=== PATIENT | female | born 1970 | race Caucasian/White ===

== ENCOUNTER 2020-11-17 10:14 | Emergency (ER) | payer MEDICAID ==
[~2020-11-17] VITALS: Ht 170.2 cm; Wt 80.0 kg
[2020-11-17 10:27] VITALS: BP 115/86
[2020-11-17] MEDS ORDERED: HYDROcodone/APAP 5/325MG 1 TAB TABLET PO ONE (10:45)
--- NOTE | 2020-11-17 11:10 | RAD ---
EXAM: Left knee, 4 views. HISTORY: Fall, pain. COMPARISON: None. FINDINGS: No fractures are identified. Joint spaces and alignment are maintained. There is no joint e ffusion. IMPRESSION: 1. No fracture or joint effusion. Electronically signed by: Lisa Modi MD (11/17/2020 11:08 AM) [id number]
--- NOTE | 2020-11-17 11:16 | RAD ---
EXAM: Right ankle 3 views. HISTORY: Fall, pain. COMPARISON: None. FINDINGS: Three views of the right ankle are obtained. A nondisplaced osteochondral lesion measuring 7 mm is suspected along the lateral talar dome. No disp laced fractures are appreciated elsewhere. There is soft tissue swelling laterally greater than media lly Alignment is normal. Joint spaces are maintained. IMPRESSION: 1. Suspect a nondisplaced osteochondral lesion along the lateral talar dome versus artifact. MRI coul d further evaluate. 2. Soft tissue injury laterally greater than medially. Electronically signed by: Lisa Modi MD (11/17/2020 11:13 AM) [id number]
--- NOTE | 2020-11-17 11:21 | PHYS DOC ---
Past History Past Surgical History: Hysterectomy Alcohol Use: None General Adult EDM: Chief Complaint: MECHANICAL FALL HPI: HPI: Patient is a 44-year-old female coming in for left knee pain and right ankle pain. Patient states she was going to take her dog out to use the restroom and missed the last step. Is unsure how she twisted her knee or how the injuries occurred. Denies any head injury or loss of consciousness. Patient states that she has been wearing a cam boot on her right for chronic right ankle pain that was thought to be tendinitis. Patient states she was not wearing the boot at the time. Review of Systems: Review of Systems: All other systems within normal limits except for as noted in the HPI Current Medications: Current Meds: Current Medications Medications (Trade) Dose Ordered Sig/Prateek Start Time Stop Time Status Last Admin Dose Admin Acetaminophen/ Hydrocodone Bitart (Lortab 5/325) 1 tab 1X ONCE 11/17/20 10:45 11/17/20 10:46 DC 11/17/20 10:44 1 TAB Allergies: Allergies: Allergies Coded Allergies Type Severity Reaction Last Updated Verified bee venom protein (honey bee) Allergy Unknown 11/17/20 Yes Physical Exam: PE: Constitutional: Well developed, well nourished, no acute distress, non-toxic appearance. [] HENT: Normocephalic, atraumatic, bilateral external ears normal, nose normal. [] Eyes: PERRLA, conjunctiva normal, no discharge. [] Neck: No rigidity, supple, no stridor. [] Cardiovascular: Regular rate and rhythm, brisk cap refill [] Lungs & Thorax: Non labored symmetric respirations, no tachypnea or respiratory distress [] Abdomen: Soft, nondistended. Skin: Warm, dry, no erythema, no rash. [] Back: Unremarkable Extremities: No deformities, range of motion grossly intact, no lower extremity edema. Left knee exam: No swelling or deformity, tenderness beneath patella. No anterior, posterior, varus, valgus laxity. Pain not reproduced with axial loading. Right ankle exam: Tenderness and swelling over lateral malleolus, no other tenderness or swelling. [] Neurologic: Alert and oriented X 3, no focal deficits noted. [] Psychologic: Affect normal, judgement normal, mood normal. [] Current Patient Data: Vital Signs: Vital Signs Date Time Temp Pulse Resp B/P (MAP) Pulse Ox O2 Delivery O2 Flow Rate FiO2 11/17/20 10:44 16 11/17/20 10:27 98.5 90 115/86 98 Room Air EKG: EKG: [] Radiology/Procedures: Radiology/Procedures: [address] [address] IMAGING REPORT Signed PATIENT: FRANK OVALLE ACCOUNT: [id number] : 1970 LOCATION: ER AGE: 49 SEX: F EXAM STATUS: REG ER ORD. PHYSICIAN: NNAMDI JACOBO MD REASON: fall PROCEDURE: KNEE LEFT 4V EXAM: Left knee, 4 views. HISTORY: Fall, pain. COMPARISON: None. FINDINGS: No fractures are identified. Joint spaces and alignment are maintained. There is no joint effusion. IMPRESSION: 1. No fracture or joint effusion. Electronically signed by: Lisa Modi MD (11/17/2020 11:08 AM) [id number] DICTATED AND SIGNED BY: RALPH MODI MD DATE: 11/17/20 1109 CC: NNAMDI JACOBO MD; PCP,UNKNOWN ~MTH0 0 [][address] [address] IMAGING REPORT Signed PATIENT: FRANK OVALLE ACCOUNT: [id number] : 1970 LOCATION: ER AGE: 49 SEX: F EXAM STATUS: REG ER ORD. PHYSICIAN: NNAMDI JACOBO MD REASON: fall PROCEDURE: ANKLE RIGHT 3V EXAM: Right ankle 3 views. HISTORY: Fall, pain. COMPARISON: None. FINDINGS: Three views of the right ankle are obtained. A nondisplaced osteochondral lesion measuring 7 mm is suspected along the lateral talar dome. No displaced fractures are appreciated elsewhere. There is soft tissue swelling laterally greater than medially Alignment is normal. Joint spaces are maintained. IMPRESSION: 1. Suspect a nondisplaced osteochondral lesion along the lateral talar dome versus artifact. MRI could further evaluate. 2. Soft tissue injury laterally greater than medially. Electronically signed by: Lisa Modi MD (11/17/2020 11:13 AM) [id number] DICTATED AND SIGNED BY: RALPH MODI MD DATE: 11/17/20 1108 CC: NNAMDI JACOBO MD; PCP,UNKNOWN ~MTH0 0 Heart Score: C/O Chest Pain: No Risk Factors: Risk Factors: DM, Current or recent (<one month) smoker, HTN, HLP, family history of CAD, obesity. Risk Scores: Score 0 - 3: 2.5% MACE over next 6 weeks - Discharge Home Score 4 - 6: 20.3% MACE over next 6 weeks - Admit for Clinical Observation Score 7 - 10: 72.7% MACE over next 6 weeks - Early Invasive Strategies Course & Med Decision Making: Course & Med Decision Making Discussed with Dr. Shook, patient can use her cam boot and follow-up in clinic. Dragon Disclaimer: Dragon Disclaimer: This electronic medical record was generated, in whole or in part, using a voice recognition dictation system. Departure Departure: Impression: Primary Impression: Fractured lateral malleolus Disposition: HOME / SELF CARE / HOMELESS Condition: STABLE Referrals: PCP,UNKNOWN (PCP) BILL SHOOK MD Patient Instructions: Elastic Bandage and RICE Additional Instructions: Follow-up with your primary care provider for referral to [facility] for antibody titer testing for COVID-19 Scripts Hydrocodone Bit/Acetaminophen (HYDROCODONE-APAP 5-325 ) 1 Each Tablet 1 TAB PO PRN Q6HRS PRN for PAIN for 3 Days, #10 TAB 0 Refills Caution: this medication can make you drowsy. Do not drive or operate heavy machinery when using this medication. Prov: NNAMDI JACOBO MD 11/17/20 NNAMDI JACOBO MD Nov 17, 2020 11:21
[2020-11-17] MEDS ORDERED: ONDANSETRON ODT 4 MG TAB.RAPDIS PO ONE (11:45)
[2020-11-17] MEDS ORDERED: HYDR-2155 PO (11:59)
== END 2020-11-17 12:19 | disposition home or self-care (01) ==
LOC: ER 10:14
DX: S82.61XA Displaced fracture of lateral malleolus of right fibula, initial encounter for closed fracture (principal); M25.562 Pain in left knee; Z91.030 Bee allergy status; X50.9XXA Other and unspecified overexertion or strenuous movements or postures, initial encounter; Y93.89 Activity, other specified; Y92.89 Other specified places as the place of occurrence of the external cause; Y99.8 Other external cause status
CPT/HCPCS: 73564; 73610; 99284; Q0162

== ENCOUNTER 2021-06-05 13:16 | Emergency (ER) | payer MEDICAID ==
[~2021-06-05] VITALS: Ht 170.2 cm; Wt 94.0 kg
[~2021-06-05 13:16] MED LIST: HYDR-2155 PO
[2021-06-05 13:33] VITALS: BP 132/92
[2021-06-05] MEDS ORDERED: PROMETHAZINE 25 MG TABLET. PO ONE (13:45)
[2021-06-05] MEDS ORDERED: SUMAtriptan SUCC 6 MG/0.5 ML VIAL SQ ONE (13:45)
[2021-06-05] MEDS ORDERED: KETOROLAC 60 MG/2 ML VIAL. IM ONE (13:45)
[2021-06-05] MEDS ORDERED: diphenhydrAMINE 50 MG/ML VIAL IM ONE (14:30)
--- NOTE | 2021-06-05 14:42 | PHYS DOC ---
Past History Additional Past Medical Histor: lupus Past Surgical History: Hysterectomy Alcohol Use: None General Adult EDM: Chief Complaint: HEADACHE HPI: HPI: Patient is a 50 year old female with past medical history of migraines who presents with headache that she has had for the past 4 days. She denies any inciting factors, stating that she "just woke up with it." She rates her pain 5/10 nonradiating. She does not have auras with her migraines. Patient denies photophobia, phonophobia. She reports associated nausea. Patient states that she has lived away from the area for several years, and just moved back recently. Typically, she is given Toradol and Phenergan for her migraines, as well as one other medication, of which she cannot remember the name. Review of Systems: Review of Systems: ROS negative or noncontributory except as mentioned in HPI. Current Medications: Current Meds: Current Medications Medications (Trade) Dose Ordered Sig/Prateek Start Time Stop Time Status Last Admin Dose Admin Diphenhydramine HCl (Benadryl) 50 mg 1X ONCE 06/05/21 14:30 06/05/21 14:31 DC Ketorolac Tromethamine (Toradol Im) 60 mg 1X ONCE 06/05/21 13:45 06/05/21 13:49 DC 06/05/21 13:57 60 MG Promethazine HCl (Phenergan) 25 mg 1X ONCE 06/05/21 13:45 06/05/21 13:49 DC 06/05/21 13:57 25 MG Sumatriptan Succinate (Imitrex) 6 mg 1X ONCE 06/05/21 13:45 06/05/21 13:49 DC 06/05/21 13:58 6 MG Allergies: Allergies: Allergies Coded Allergies Type Severity Reaction Last Updated Verified amoxicillin Allergy Intermediate rash 06/05/21 Yes bee venom protein (honey bee) Allergy Unknown 11/17/20 Yes Physical Exam: PE: Constitutional: Well developed, well nourished, no acute distress, non-toxic appearance. HENT: Normocephalic, atraumatic, bilateral external ears normal, nose normal. Eyes: EOMI, conjunctiva normal, no discharge. Neck: Normal range of motion, no tenderness, no stridor. Skin: Warm, dry, no erythema, no rash. Back: No tenderness, no CVA tenderness. Extremities: No tenderness, no cyanosis, no clubbing, ROM intact, no edema. Neurologic: Alert and oriented x4, steady and symmetrical upright gait, no focal deficits noted. Current Patient Data: Vital Signs: Vital Signs Date Time Temp Pulse Resp B/P (MAP) Pulse Ox O2 Delivery O2 Flow Rate FiO2 06/05/21 13:33 82 16 132/92 (105) 99 Room Air Heart Score: C/O Chest Pain: No Course & Med Decision Making: Course & Med Decision Making Pertinent Labs and Imaging studies reviewed. (See chart for details) Patient is a 50-year-old female with history of migraine who presents today with a headache with onset 4 days ago. She states she has tried taking prednisone and Benadryl at home without symptom relief. Patient states she usually gets Toradol and Phenergan injection for her migraines, but she believes that her pain is too intense for these medications. With triptans, patient states that she gets "irritated." Discussed medication options with the patient. Using shared decision making model, will provide IM Toradol, subcu Imitrex and p.o. Phenergan. After Imitrex administration, patient did become irritable, and began scratching at herself. I ordered IM Benadryl for the patient. Before nurse was able to provide Benadryl to aid in agitation and urticaria, patient had eloped the emergency department. No discharge instructions nor return precautions were able to be provided. Stiven Disclaimer: Stiven Disclaimer: This electronic medical record was generated, in whole or in part, using a voice recognition dictation system. Departure Departure: Impression: Primary Impression: Eloped from emergency department Additional Impression: Headache, unspecified Qualified Codes: R51.9 - Headache, unspecified Disposition: 07 LEFT AWOL/ELOPED Condition: GUARDED Referrals: PCP,UNKNOWN (PCP) KALI ELY Jun 05, 2021 14:41
== END 2021-06-05 14:45 | disposition left against medical advice (07) ==
LOC: ER 13:16
DX: G43.909 Migraine, unspecified, not intractable, without status migrainosus (principal); Z88.1 Allergy status to other antibiotic agents; Z91.030 Bee allergy status
CPT/HCPCS: 96372; 99284; J1885; J3030; Q0169

== ENCOUNTER 2021-07-25 13:45 | Emergency (ER) | payer MEDICAID ==
[~2021-07-25] VITALS: Ht 170.2 cm; Wt 91.9 kg
--- NOTE | 2021-07-25 14:10 | PHYS DOC ---
Past History Additional Past Medical Histor: lupus Past Surgical History: Hysterectomy Alcohol Use: None General Adult EDM: Chief Complaint: HEADACHE HPI: HPI: Patient is a 50-year-old female who presents to the emergency department for headache. Patient reports a generalized headache that she rates 6 out of 10. She reports that typically caffeine helps. Headache has been intermittent over the last 3 days. Patient states that she has a history of migraine headaches and was seen in this emergency department 2 weeks ago for similar headache. She reports nausea and phonophobia. She denies thunderclap headache, vomiting, photophobia, fevers. She reports that this is not the worst headache she has ever had. Patient does have a history of seizures and takes Topamax, gabapentin and Depakote. She reports having a history of a stable pituitary adenoma. Review of Systems: Review of Systems: Constitutional: See HPI Eyes: See HPI HEENT: See HPI GI: See HPI Neurologic: See HPI Current Medications: Current Meds: Current Medications Medications (Trade) Dose Ordered Sig/Prateek Start Time Stop Time Status Last Admin Dose Admin Diphenhydramine HCl (Benadryl) 25 mg 1X ONCE 07/25/21 14:15 07/25/21 14:16 UNV Ketorolac Tromethamine (Toradol 30mg Vial) 30 mg 1X ONCE 07/25/21 14:15 07/25/21 14:16 UNV Prochlorperazine Edisylate (Compazine) 10 mg 1X ONCE 07/25/21 14:15 07/25/21 14:16 UNV Sodium Chloride 1,000 ml @ 1,000 mls/hr 1X ONCE 07/25/21 14:15 07/25/21 15:14 UNV Allergies: Allergies: Allergies Coded Allergies Type Severity Reaction Last Updated Verified amoxicillin Allergy Intermediate rash 06/05/21 Yes bee venom protein (honey bee) Allergy Unknown 11/17/20 Yes Physical Exam: PE: Constitutional: Well developed, well nourished, no acute distress, non-toxic appearance. [] HENT: Normocephalic, atraumatic, bilateral external ears normal, oropharynx moist, no oral exudates, nose normal. [] Eyes: PERRL 5 mm bilaterally,, no nystagmus, EOMI, conjunctiva normal, no discharge. [] Neck: Normal range of motion, no nuchal rigidity, no tenderness, supple, no stridor. [] Cardiovascular:Heart rate regular rhythm, no murmur [] Lungs & Thorax: Bilateral breath sounds clear to auscultation [] Abdomen: Bowel sounds normal, soft, no tenderness, no masses, no pulsatile masses. [] Skin: Warm, dry, no erythema, no rash. [] Back: No tenderness, normal range of motion Extremities: No tenderness, no cyanosis, no clubbing, ROM intact, no edema. [] Neurologic: Alert and oriented X 3, normal motor function, normal sensory function, no focal deficits noted, patient moving all 4 extremities equally. [] Psychologic: Affect normal, judgement normal, mood normal. [] EKG: EKG: [] Radiology/Procedures: Radiology/Procedures: []PROCEDURE: CT HEAD WO CONTRAST CT HEAD/BRAIN WO Date: 07/25/2021 2:42 PM Clinical Indication: HEADACHES Comparison: None. Technique: 5 mm axial tomographic images were obtained of the head without contrast. These were viewed on brain and bone windows. One or more of the foll owing dose reduction techniques were utilized: Automated exposure control (AEC), Adjustment of mA and/or kV according to patient size, Use of iterative reconstruction technique such as ASiR, CT scan done according to ALARA and image gently/image wisely Findings: The brain parenchyma is normal in attenuation. No intra- or extra-axial mass or fluid collection. No acute hemorrhage. The ventricles are normal in size, shape, and morphology. The gonzalez-white matter junction is normal. The subarachnoid cisterns are patent. The visualized paranasal sinuses are normal. The visualized portions of the orbits and globes are normal. The mastoid air cells are clear. The green marketer topogram shows no lytic lesion or fracture. Impression: No acute intracranial process. Electronically signed by: Jan Wing MD (07/25/2021 2:57 PM) [facility] DICTATED AND SIGNED BY: JAN WING MD DATE: 07/25/21 1456 CC: SON PIERRE APRN; PCP,UNKNOWN ~ Heart Score: C/O Chest Pain: N/A Risk Factors: Risk Factors: DM, Current or recent (<one month) smoker, HTN, HLP, family history of CAD, obesity. Risk Scores: Score 0 - 3: 2.5% MACE over next 6 weeks - Discharge Home Score 4 - 6: 20.3% MACE over next 6 weeks - Admit for Clinical Observation Score 7 - 10: 72.7% MACE over next 6 weeks - Early Invasive Strategies Course & Med Decision Making: Course & Med Decision Making Pertinent Labs and Imaging studies reviewed. (See chart for details) [] Patient resents to the emergency department today for headache. Patient has a history of migraine headaches. She does have a history of pituitary adenoma so CT scan of her head was performed. Patient treated with migraine cocktail. Patient denies thunderclap headache, fevers or headache ever. CT scan did not show any acute findings. Patient reports feeling improvement in her symptoms following migraine cocktail. She is advised to increase her fluids and take Tylenol and ibuprofen at home for her pain. She is advised to follow-up with her primary care provider regarding headache management. I discussed with patient all findings and diagnostic testing as well as the need to follow-up with PCP for further evaluation and treatment or return to the ER if any new or worsening symptoms. Strict return precautions were also discussed at length. Patient voiced understanding and agreement with the plan. Patient is hemodynamically stable at the time of disposition. Dragon Disclaimer: Pogoseat Disclaimer: This electronic medical record was generated, in whole or in part, using a voice recognition dictation system. Departure Departure: Impression: Primary Impression: Migraine headache Qualified Codes: G43.909 - Migraine, unspecified, not intractable, without status migrainosus Disposition: HOME / SELF CARE / HOMELESS Condition: GOOD Referrals: PCP,UNKNOWN (PCP) Patient Instructions: Migraine Headache Additional Instructions: You were seen in the emergency department for a headache which is most likely a migraine. The CT scan of your head did not show any acute findings, please see report. You were given a migraine cocktail which includes Toradol, Compazine, and Benadryl which resolved the headache. Fluids were also given to help with dehydration which is commonly a cause of headache. Team to hydrate at home with water and other fluids and eat normal diet. You can take Tylenol and ibuprofen at home for your headaches. Follow-up with your primary care provider regardi ng headache medications. Please return to the emergency department if you have any vomiting, fever, increased pain that is refractory to treatments at home, vision changes, changes in behavior or mental status, or any focal neurological symptoms including weakness or numbness in the limbs. It is important to follow-up with your doctor tomorrow regarding your ER visit for reexamination. SON PIERRE FORESTRY BIOLOGY SPECIALIST Jul 25, 2021 14:10
[2021-07-25] MEDS ORDERED: diphenhydrAMINE 50 MG/ML VIAL IVP ONE (14:15)
[2021-07-25] MEDS ORDERED: PROCHLORPERAZINE 10 MG/2 ML VIAL. IV ONE (14:15)
[2021-07-25] MEDS ORDERED: IV NORMAL SALINE 1,000ML 1,000 ML IV ONE (14:15)
[2021-07-25] MEDS ORDERED: KETOROLAC 30 MG/ML VIAL. IVP ONE (14:15)
--- NOTE | 2021-07-25 14:59 | RAD ---
CT HEAD/BRAIN WO Date: 07/25/2021 2:42 PM Clinical Indication: HEADACHES Comparison: None. Technique: 5 mm axial tomographic images were obtained of the head without contrast. These were view ed on brain and bone windows. One or more of the following dose reduction techniques were utilized: A utomated exposure control (AEC), Adjustment of mA and/or kV according to patient size, Use of iterati ve reconstruction technique such as ASiR, CT scan done according to ALARA and image gently/image flores ly Findings: The brain parenchyma is normal in attenuation. No intra- or extra-axial mass or fluid collection. No acute hemorrhage. The ventricles are normal in size, shape, and morphology. The gonzalez-white matter zaynab ction is normal. The subarachnoid cisterns are patent. The visualized paranasal sinuses are normal. The visualized portions of the orbits and globes are no rmal. The mastoid air cells are clear. The supervisor drying and softening topogram shows no lytic lesion or fracture. Impression: No acute intracranial process. Electronically signed by: Azam Bailey MD (07/25/2021 2:57 PM) [facility]
[2021-07-25 15:27] VITALS: BP 123/78
== END 2021-07-25 15:25 | disposition home or self-care (01) ==
LOC: ER 13:45
DX: G43.909 Migraine, unspecified, not intractable, without status migrainosus (principal); Z88.1 Allergy status to other antibiotic agents; Z91.030 Bee allergy status
CPT/HCPCS: 70450; 96361; 96374; 96375; 99284; J0780; J1200; J1885; J7030